=== PATIENT | female | born 1960 | race Caucasian/White ===

== ENCOUNTER 2018-03-02 09:47 | Outpatient (CLI) | payer BC | END 2018-03-02 09:48 | disposition home or self-care (01) | LOC: BICMAMMO 09:47 | PROVIDERS: ATTEND Family Medicine | DX: N63.10 Unspecified lump in the right breast, unspecified quadrant (principal) | CPT/HCPCS: 77066; G0279 ==

== ENCOUNTER 2022-02-20 14:50 | Outpatient (CLI) | payer OTHER | END 2022-02-20 14:51 | disposition home or self-care (01) | LOC: SCSRAD 14:50 | PROVIDERS: ATTEND Family Medicine | DX: M25.532 Pain in left wrist (principal) ==